=== PATIENT | female | born 1985 | race Caucasian/White ===

== ENCOUNTER 2023-12-18 20:21 | Emergency (ER) | payer SELFPAY ==
[2023-12-18] VITALS (7 sets, daily range): BP systolic 117–190; BP diastolic 68–100; PULSE 61–86; TEMP 36.8; O2SAT 18–99; BMI 28.3
--- NOTE | 2023-12-18 20:47 | CT_ITS ---
The [address] [address] Patient Name: JENNIFER BENAVIDEZ MRN: [id number] date: 1985 Sex: F Assigned Patient Location: ER Current Patient Location: ER Accession/Order Number: [id number] Exam Date: 12/18/2023 21:00 Report Date: 12/18/2023 22:05 At the request of: BRITTNEY RUIZ Procedure: CT head/brain wo con Head CT 12/18/2023 8:00 PM CDT History: dizziness. x Comparison: None Technique: Unenhanced CT imaging of the head. This CT exam was performed using one or more of the following dose reduction techniques: Automated exposure control, adjustment of the mA and/or KV according to patient size, or use of iterative reconstruction technique. Findings: There is no evidence of acute intracranial abnormality. Specifically, there is no evidence of acute hemorrhage, infarct, contusion, hydrocephalus, midline shift, or abnormal extra-axial collection. The calvarium is intact. The paranasal sinuses and mastoid air cells are clear. CT/CT head/brain wo con Impression: 1. No acute intracranial abnormality. Electronically authenticated by: ELINA DUNCAN Date: 12/18/2023 22:05
--- NOTE | 2023-12-18 20:48 | ED_ITS ---
HPI HPI - General Adult General Chief complaint: Headache Stated complaint: hypertension Time Seen by Provider: 12/18/23 20:25 Source: patient Mode of arrival: walk-in Limitations: no limitations History of Present Illness HPI narrative: presents complaining of headache, elevated blood pressure and sensation of off balance. No problem walking. No extremity weakness. No ear pain. No fever. History of same headaches for years. Does not have PCP. Works at [employer]. no visual complaints. sensation of feeling off balance is constant and does not vary with position Related Data Home Medications ?Medication ?Instructions ?Recorded ?Confirmed No Known Home Medications 12/18/23 12/18/23 Allergies Allergy/AdvReac Type Severity Reaction Status Date / Time No Known Drug Allergies Allergy Verified 12/18/23 20:35 Opioid HPI Opioid Management Most Recent Opioid Data: No Data to Display Review of Systems ROS Status of ROS 10 or more systems reviewed and unremark able except as noted in history and below Exam Constitutional Vital Signs, click to edit/add: Last Vital Signs Temp 98.2 F 12/18/23 20:32 Pulse 61 12/18/23 22:14 Resp 16 12/18/23 22:14 BP 125/90 12/18/23 22:14 Pulse Ox 96 12/18/23 22:14 O2 Del Method Room Air 12/18/23 22:14 Common normals: no apparent distress, average body habitus, oriented x3, no limitations, healthy appearing, alert and well nourished [facility] Common normals: normocephalic and head/scalp atraumatic Other: bilat bulging TM. not red Eye Common normals: PERRL and EOMs intact bilaterally Respiratory Common normals: normal respiratory effort, no retractions, no use of accessory muscles and clear to auscultation bilaterally Cardio Common normals: regular rate, regular rhythm, S1 normal heart sound and S2 normal heart sound Extremity Common normals: normal to inspection and full ROM Neuro Common normals: oriented x3, CN's II-XII intact bilaterally, moves all extremities and no focal motor deficits Psych Appearance: grossly normal Course Vital Signs Vital signs: Vital Signs Temperature 98.2 F 12/18/23 20:32 Pulse Rate 86 12/18/23 20:32 Respiratory Rate 20 12/18/23 20:32 Blood Pressure 190/100 H 12/18/23 20:32 Pulse Oximetry 18 L 12/18/23 20:32 Oxygen Delivery Method Room Air 12/18/23 20:32 Temperature 98.2 F 12/18/23 20:32 Pulse Rate 61 12/18/23 22:14 Respiratory Rate 16 12/18/23 22:14 Blood Pressure 125/90 12/18/23 22:14 Pulse Oximetry 96 12/18/23 22:14 Oxygen Delivery Method Room Air 12/18/23 22:14 Medical Decision Making MDM Narrative Medical decision making narrative: patient has past history of HTN but has not treated in over 6 years. Sensation of feeling off balance today and headache. Past history of similar headaches. No nausea or vision changes. BP 190 systolic on admision. Exam neg except bilat TMs fluid bulge. patient denies allergies. Treated with catapres 0.1 and solumedrol [address] brain neg. Patient feeling better after above intervention. BP is now 125/90. she was also given dose of lisinopril prior to discharge. Advised to follow up with PCP Lab Data Labs: Lab Results 12/18/23 Range/Units 20:55 WBC 7.8 (4.0-11.0) 10^3/uL RBC 4.67 (4.20-5.40) 10^6/uL Hgb 14.2 (12.0-16.0) g/dL Hct 40.8 (36.0-48.0) % MCV 87.4 (81.0-99.0) fL MCH 30.4 (26.7-34.0) pg MCHC 34.8 (29.9-35.2) g/dL RDW 12.1 (11.0-15.0) % Plt Count 307 (150-450) 10^3/uL MPV 9.4 L (9.5-13.5) fL Neut % (Auto) 56.8 (43.0-75.0) % Lymph % (Auto) 34.6 (20.5-60.0) % [place] % (Auto) 6.6 (1.7-12.0) % Eos % (Auto) 1.2 (0.9-7.0) % Baso % (Auto) 0.5 (0.2-2.0) % Neut # (Auto) 4.4 (1.4-6.5) 10^3/uL Lymph # (Auto) 2.7 (1.2-3.8) 10^3/uL [place] # (Auto) 0.5 (0.3-0.8) 10^3/uL Eos # (Auto) 0.1 (0.0-0.7) 10^3/uL Baso # (Auto) 0.0 (0.0-0.1) 10^3/uL Abs Immat Gran (auto) 0.02 (0.00-0.03) 10^3/uL Imm/Tot Granulo (auto) 0.3 (0.0-0.5) % Sodium 140 (136-145) mmol/L Potassium 3.3 L (3.5-5.1) mmol/L Chloride 104 (98-107) mmol/L Carbon Dioxide 25.6 (21.0-32.0) mmol/L Anion Gap 13.7 BUN 10.0 (7.0-18.0) mg/dL Creatinine 0.75 (0.55-1.02) mg/dL Est GFR ( Amer) >60 (>=60) Est GFR (Non-Af Amer) >60 (>=60) BUN/Creatinine Ratio 13.3 Glucose 88 (74-106) mg/dL Calcium 8.9 (8.5-10.1) mg/dL Discharge Plan Discharge Stand Alone Forms: Portal Instructions Chief Complaint: Headache Clinical Impression: Hypertensive urgency, Dizziness Patient Disposition: Home, Self-Care Prescriptions / Home Meds: No Action No Known Home Medications Print Language: Thai Instructions: Hypertensive Crisis (ED), Dizziness (ED) Additional Instructions: follow up with a family doctor next week. Referrals: Physician,Non-Staff, MD [Primary Care Provider] - 1 week
[2023-12-18 21:02] LABS: Basophils Percent Auto 0.5 % (0.2-2.0); Eosinophils Absolute Auto 0.1 10^3/uL (0.0-0.7); Eosinophils Percent Auto 1.2 % (0.9-7.0); Hematocrit 40.8 % (36.0-48.0); Hemoglobin 14.2 g/dL (12.0-16.0); Immature Granulocytes Abs Auto 0.02 10^3/uL (0.00-0.03); Immature Granulocytes Pct Auto 0.3 % (0.0-0.5); Lymphocytes Absolute Auto 2.7 10^3/uL (1.2-3.8); Lymphocytes Percent Auto 34.6 % (20.5-60.0); Mean Corpuscular HGB Conc 34.8 g/dL (29.9-35.2); Mean Corpuscular Hemoglobin 30.4 pg (26.7-34.0); Mean Corpuscular Volume 87.4 fL (81.0-99.0); Mean Platelet Volume 9.4 fL (9.5-13.5); Monocytes Absolute Auto 0.5 10^3/uL (0.3-0.8); Monocytes Percent Auto 6.6 % (1.7-12.0); Neutrophils Absolute Auto 4.4 10^3/uL (1.4-6.5); Neutrophils Percent Auto 56.8 % (43.0-75.0); Platelet Count 307 10^3/uL (150-450); Red Blood Count 4.67 10^6/uL (4.20-5.40); Red Cell Distribution Width 12.1 % (11.0-15.0); White Blood Count 7.8 10^3/uL (4.0-11.0)
[2023-12-18] MEDS: CLONIDINE HCL 0.1 MG TABLET PO (21:07)
[2023-12-18] MEDS: METHYLPREDNISOLONE SOD SUCC PF 125 MG/2 ML VIAL IVP (21:07)
[2023-12-18 21:14] LABS: Anion Gap 13.7; BUN Creatinine Ratio 13.3; Calcium 8.9 mg/dL (8.5-10.1); Carbon Dioxide 25.6 mmol/L (21.0-32.0); Chloride 104 mmol/L (98-107); Estimated GFR (African America >60 (>=60); Estimated GFR (Non-African Ame >60 (>=60); Glucose 88 mg/dL (74-106); Potassium 3.3 mmol/L (3.5-5.1); Sodium 140 mmol/L (136-145)
--- NOTE | 2023-12-18 22:52 | ECG_ITS ---
The [facility] Test Date: 2023-12-18 Pat Name: JENNIFER BENAVIDEZ Department: Room: - Gender: Female [employer]: : 1985 Requested By: [id number] Order Number: [id number] Reading MD: OLLIE ROE Measurements Intervals [place] Rate: 68 P: 49 AL: 128 QRS: 85 QRSD: 86 T: 45 QT: 394 QTc: 411 Interpretive Statements 1100 Sinus rhythm [address] depression 9130 borderline ECG No previous ECG available for comparison Electronically Signed On 12-19-2023 12:13:23 EDT by OLLIE ROE
[2023-12-18] MEDS: LISINOPRIL 10 MG TABLET PO (23:13)
== END 2023-12-18 23:14 | disposition home or self-care (01) ==
PROVIDERS: Emergency Provider Internal Medicine
DX: I16.0 Hypertensive urgency (principal); R42 Dizziness and giddiness
CPT/HCPCS: 36415; 70450; 80048; 85025; 93005; 96374; 99285; J2919

== ENCOUNTER 2024-07-13 19:22 | Emergency (ER) | payer SELFPAY ==
[2024-07-13 19:30] VITALS: BP 161/86; PULSE 65; TEMP 36.7; O2SAT 98
--- OUTSIDE RECORDS SUMMARY | 2024-07-13 19:31 | XMS_ITS | CCD ---
Author Organization [facility] Inform ion Partnership [facility] Care Team Providers Care Enrobing Machine Feeder Name Role Phone NONE, XXXX Primary Care Physician Unavailab RENETTA Gifford Primary Care Physician [phone] SUSANNA HOWE Attending Unavailable CARLEY, SUSANNA Admitting Unavailable SUSANNA HOWE Consulting Unavailable [facility] [place] Primary Care Unavailable ZACH, DR WHITTAKER Consulting Unavailable ZACH, DR WHITTAKER Attending Unavailable MISC, DR SANDHU Primary Care Unavailable ZACH, DR WHITTAKER Admitting Unavailable ZACH, DR WHITTAKER Consulting Unavailable ZACH, DR WHITTAKER Attending Unavailable MISC, DR SANDHU Primary Care Unavailable ZACH, DR WHITTAKER Admitting Unavailable ZIEBRUSTY, DR JEREMY Diego Consulting Unavailable Renetta Castle Primary Care Physician [phone] Unavailable Unavailable Unavailable Medications Current Medications Medication Drug Class(es) Dates Sig (Normalized) Sig (Original) brexpiprazole 1 mg oral tablet (1 source) Atypical Antipsychotic Start: 10-18-2021 take 1 tablet by mouth once daily Rexulti 1 mg oral tablet mg tab(s), Oral, Daily, Refills(s) 0 Start Date: 10/18/21 Status: Ordered cariprazine 1.5 mg oral capsule (2 sources) Atypical Antipsychotic Start: 05-14-2022 Vraylar 1.5 mg oral capsule Refills(s) 0 Start Date: 05/14/22 Status: Ordered cyclobenzaprine hydrochloride 10 mg oral tablet (5 sources) Muscle Relaxant Start: 11-30-2018 take 10 mg by mouth three times daily Cyclobenzaprine Active 10 MG Oral Three times daily November 30, 2018 1:30pm ibuprofen 600 mg oral tablet (5 sources) Nonsteroidal Anti-inflammatory Drug Start: 11-30-2018 take 600 mg by mouth every six hours Ibuprofen Active 600 MG Oral Q6H November 30, 2018 1:30pm lamoTRIgine 200 mg disintegrating oral tablet (2 sources) Mood Stabilizer, Anti-epileptic Agent Start: 10-18-2021 take 1 mg by mouth twice daily lamotrigine 200 mg oral tablet, disintegrating mg tab(s), Oral, BID, Refills(s) 0 Start Date: 10/18/21 Status: Ordered lamotrigine 200 mg oral tablet, disintegrating (1 source) Start: 10-18-2021 take 1 mg by mouth twice daily lamotrigine 200 mg oral tablet, disintegrating mg tab(s), Oral, BID, Refills(s) 0 Start Date: 10/18/21 Status: Ordered phenazopyridine hydrochloride 100 mg oral tablet (1 source) Start: 10-18-2021 phenazopyridine 100 mg Tab mg tab(s), Oral, TIDPC, Refills(s) 0 Start Date: 10/18/21 Status: Ordered QUEtiapine 50 mg oral tablet (1 source) Atypical Antipsychotic Start: 10-18-2021 take 1 mg by mouth twice daily SEROquel 50 mg Tab mg tab(s), Oral, BID, Refills(s) 0 Start Date: 10/18/21 Status: Ordered 24 hr venlafaxine 150 mg extended release oral capsule (5 sources) Serotonin and Norepinephrine Reuptake Inhibitor Start: 11-30-2018 take 150 mg by mouth once daily Venlafaxine Active 150 MG Oral Daily November 30, 2018 11:51am ziprasidone 40 mg oral capsule (1 source) Atypical Antipsychotic Start: 10-18-2021 take 1 mg by mouth twice daily Geodon 40 mg oral capsule mg cap(s), Oral, BID, Refills(s) 0 Start Date: 10/18/21 Status: Ordered Completed/Discontinued Medications Medication Drug Class(es) Dates Sig (Normalized) Sig (Original) potassium citrate 15 meq extended release oral tablet (2 sources) Start: 05-14-2022 take 1 tablet by mouth twice daily Urocit-K 15 mEq oral tablet, extended release 15 mEq = 1 tab(s), Oral, BID, # 60 tab(s), Refills(s) 11, Pharmacy: [facility]/pharmacy #[id number], 162, cm, 05/14/22 13:29:00 EST, Height/Length Dosing, 72, kg, 05/14/22 13:29:00 EST, Weight Dosing Start Date: 05/14/22 Status: Ordered Problems Problem Classification Problem Date Documented Da te Episodic/Chronic Anxiety disorders (3 sources) Anxiety 10-17-2021 Chronic Calculus of urinary tract (11 sources) Kidney stone; Translations: [Calculus of kidney] Onset: 10-18-2021 Episodic Disorders of teeth and jaw (4 sources) Other specified disorders of teeth and supporting structures; Translations: [Dental caries, unspecified] Onset: 01-30-2022 Episodic Mood disorders (3 sources) Bipolar disorder 10-17-2021 Chronic Other aftercare (1 source) Other correction (current) drug therapy; Translations: [OTH BIT TRIPOLER CURRENT DRUG THERAPY] Onset: 02-03-2022 Episodic Spondylosis; intervertebral disc disorders; other back problems (5 sources) Neck pain; Translations: [Pain of cervical spine] Episodic Urinary tract infections (3 sources) Urinary tract infectious disease; Translations: [Urinary tract infection, site not specified] Onset: 05-14-2022 Episodic Results Test Name Value Interpretation Reference Range Facility Patient [place] [facility] [place] [facility] [place] 21, 2023 JENNIFER BENAVIDEZ [facility] [place] [address] : 1985 Dear Jennifer Benavidez, [facility] has been trying to reach you concerning your 9 mm kidney stone seen on KUB x-ray. The phone number we have on file has been disconnected. Please call the office to update your information. The office has been trying to set up surgical intervention with you once your insurance became active. Kidney stones can continue to grow, and/or leave the kidney causing obstruction. Please call the office to schedule an appointment with KUB x-ray to discuss intervention, or call to schedule surgical intervention. Thank you for your cooperation in this matter, so we can continue to provide you with quality care. Sincerely, [facility] at [facility] option #3 Normal [facility] CITRATE URINE 24HRon 022 Citric Acid, U, 24hr 217 mg/24 hr Critically low 320-1240 [facility] Comment on above: Result Comment: This test was developed and its performance characteristics determined by [facility]. It has not been cleared or approved by the Food and Drug Administration. Performed By: #### C ITRATU #### [facility] [address] [place], [place] [address] Dr. Ciara Rhoades Citric Acid, Urine 321 mg/L Normal Undefined [facility] Comment on above: Performed By: #### C ITRATU #### [facility] [address] [place], [place] [address] Dr. Ciara Rhoades OXALATE 24HR URINEon 022 Oxalates, Urine 17 mg/L Normal Undefined [facility] Comment on above: Performed By: #### O X24HR ####[facility] [address] [place] [id number]. Ciara Rhoades Oxalates, Urine 24hr 11 mg/24 hr Normal 4-31 [facility] Comment on above: Performed By: #### O X24HR ####[facility] [address] [place] [id number]. Ciara Rhoades MAGNESIUM 24HR URINEon 10-29 Magnesium 24hr Urine 30.4 mg/24 hr Normal 12.0-293.0 [facility] Comment on above: Performed By: #### M AG24 ####[facility] [address] [place] [id number]. Ciara Rhoades Magnesium UR 4.5 mg/dL Normal Not Estab. [facility] Comment on above: Performed By: #### M AG24 ####[facility] [address] [place] [id number]. Ciara Rhoades PHOSPHORUS 24HR URINEon 10-10 Phosphorus, Urine 72.5 mg/dL Normal Not Estab. The [facility] Comment on above: Performed By: #### P HOS 24 ####[facility] [address] [place] [id number]. Ciara Rhoades Phosphorus, Urine 24hr 489 mg/24 hr Normal 261-1078 [facility] Comment on above: Performed By: #### P HOS 24 ####[facility] [address] [place] [id number]. Ciara Rhoades PTH INTACTon 10-29-2021 PTH, Intact 22 pg/mL Normal 15-65 [facility] Comment on above: Performed By: #### P THINT ####[facility] [address] [place] [address]Dr. Ciara Rhoades URIC ACID 24 HR URINEon 10-10 Uric Acid, Urine 67.4 mg/dL Normal Not Estab. The [facility] Comment on above: Performed By: #### U MARIO 24 ####[facility] [address] [place] [address]Dr. Ciara Jf Uric Acid, Urine 24hr 455.0 mg/24 hr Normal 173.7-902. 1 [facility] Comment on above: Performed By: #### U MARIO 24 ####[facility] [address] [place] [address]Dr. Ciara Rhoades BUNon 10-28-2021 Urea nitrogen [Mass/Vol] 13.0 mg/dL Normal 7.0-18.0 [facility] Comment on above: Performed By: #### C A, BUN, URIC, CO2, K, CREA, NA, CL #### [facility] [address] [place] [address] [address] Ciara Rhoades CALCIUMon 10-28-2021 Calcium [Mass/Vol] 8.3 mg/dL Critically low 8.5-10.1 [facility] Comment on above: Performed By: #### C A, BUN, URIC, CO2, K, CREA, NA, CL ####[facility] [address] [place] [address]Dr. Ciara Rhoades CALCIUM 24 HR URINEon 2021 CALC, 24 HR UR 9.3 mg/24 hr Critically low 100.0-300.0 [facility] Comment on above: Performed By: #### C [id number] #### [facility] [address] [place] [address] [address] Ciara Rhoades UR CALCIUM 11.8 mg/dL Normal 5.1-21.0 [facility] Comment on above: Performed By: #### C ALC24U #### [facility] [address] [place] [address] [address] Ciara Rhoades UR TOT VOL 79 ml/24 HR Normal [facility] Comment on above: Performed By: #### C ALC24U #### [facility] [address] [place] [address] [address] Ciara Rhoades CHLORIDEon 10-28-2021 Chloride [Moles/Vol] 104 mmol/L Normal 98-107 [facility] Comment on above: Performed By: #### C A, BUN, URIC, CO2, K, CREA, NA, CL ####[facility] [address] [place] [address]Dr. Ciara Rhoades CO2on 10-28-2021 CO2 [Moles/Vol] 25.9 mmol/L Normal 21.0-32.0 [facility] Comment on above: Performed By: #### C A, BUN, URIC, CO2, K, CREA, NA, CL #### [facility] [address] [place] [address] [address] Ciara Rhoades CREA 24 HR URINEon 2 CREA, 24 HR UR 900.65 mg/24 hr Normal 800.00-1,8 00. 00 [facility] Comment on above: Performed By: #### C REA24U, NA24U #### [facility] [address] [place] [address] [address] Ciara Rhoades UR TOT VOL 675 ml/24 HR Normal [facility] Comment on above: Performed By: #### C REA24U, NA24U #### [facility] [address] [place] [address] Dr. Ciara Rhoades URINE CREAT 133.43 mg/dL Normal 20.00-300.00 [facility] Comment on above: Performed By: #### C REA24U, NA24U #### [facility] [address] [place] [address] [address] Ciara Rhoades CREATININEon 10-28-2021 Creatinine [Mass/Vol] 0.87 mg/dL Normal 0.55-1.02 [facility] Comment on above: Performed By: #### C A, BUN, URIC, CO2, K, CREA, NA, CL #### [facility] [address] [place] [address] [address] Ciara Rhoades EGFR-AF CAMEROONIAN >60 Normal >=60 [facility] Comment on above: Performed By: #### C A, BUN, URIC, CO2, K, CREA, NA, CL #### [facility] [address] [place] [address] [address] Ciara Rhoades EGFR-NON AF CAMEROONIAN >60 Normal >=60 [facility] Comment on above: Performed By: #### C A, BUN, URIC, CO2, K, CREA, NA, CL #### [facility] [address] [place] [address] [address] Ciara Rhoades NAon 10-28-2021 Sodium [Moles/Vol] 138 mmol/L Normal 136-145 [facility] Comment on above: Performed By: #### C A, BUN, URIC, CO2, K, CREA, NA, CL #### [facility] [address] [place] [address] [address] Ciara Rhoades POTASSIUMon 10-28-2021 Potassium [Moles/Vol] 3.9 mmol/L Normal 3.5-5.1 [facility] Comment on above: Performed By: #### C A, BUN, URIC, CO2, K, CREA, NA, CL ####[facility] [address] [place] [address]Dr. Ciara Rhoades SODIUM 24 HR URINEon 022 NA, 24 HR UR 111 mmol/24 hr Normal 40-220 [facility] Comment on above: Performed By: #### C REA24U, NA24U #### [facility] [address] [place] [address] [address] Ciara Rhoades Sodium (U) [Moles/Vol] 165 mmol/L Critically high 30-90 [facility] Comment on above: Performed By: #### C REA24U, NA24U #### [facility] [address] [place] [address] [address] Ciara Rhoades URIC ACID SERUMon 10-28-2021 Urate [Mass/Vol] 5.4 mg/dL Normal 2.6-6.0 [facility] Comment on above: Performed By: #### C A, BUN, URIC, CO2, K, CREA, NA, CL #### [facility] [address] [place] [address] [address] Ciara Rhoades XR KUB 1 VIEWon 10-21-2021 XR KUB 1 VIEW EXAMINATION: XR KUB 1 VIEW HISTORY: Kidney stone COMPARISON: No relevant comparison available. FINDINGS: KIDNEY/URETER - RIGHT: No visible renal or ureteral calcifications. KIDNEY/URETER - LEFT: No visible renal or ureteral calcifications. PELVIS: Numerous pelvic calcifications; nonspecific but favoring phleboliths. BOWEL: No abnormal dilation or deviation. BONES: No acute abnormality. OTHER: Negative. No abnormal gaseous collections. IMPRESSION: 1. No convincing urinary tract calculi. A distal ureteral stone cannot be excluded. Electronically authenticated by: JEREMY BLACK Date: 2021-10-21 17:10 Normal [facility] CHEMISTRYOrdered By: SYSTEM SYSTEM on 09-12-2021 Albumin [Mass/Vol] 4.4 g/dL Normal 3.3 - 5.0 gm/dL [facility] Albumin/Globulin [Mass ratio] 1.5 {ratio} Normal 1.1 - 2.2 [facility] ALP [Catalytic activity/Vol] 57 [iU]/d Normal 21 - 98 Int._Unit/L [facility] ALT No additional P-5'-P [Catalytic activity/Vol] 39 [iU]/d Normal 6 - 46 Int._Unit/L [facility] Anion gap [Moles/Vol] 14 mmol/L Normal 6 - 16 mEq/L [facility] AST [Catalytic activity/Vol] 26 [iU]/d Normal 5 - 43 Int._Unit/L [facility] Bilirubin [Mass/Vol] 1.2 mg/dL High 0.0 - 1 .1 mg/dL [facility] Calcium [Mass/Vol] 9.3 mg/dL Normal 8.9 - 11. 1 mg/dL [facility] Chloride [Moles/Vol] 104 mmol/L Normal 101 - 1 11 mmol/L [facility] Cholesterol [Mass/Vol] 192 mg/dL Normal 120 - 200 mg/dL [facility] Cholesterol in HDL [Mass/Vol] 37 mg/dL Invalid Interpretation Code [facility] Cholesterol in LDL [Mass/Vol] 137 mg/dL High <=129mg/dL [facility] Cholesterol in VLDL [Mass/Vol] 17 mg/dL Normal 7 - 40 mg/dL [facility] CO2 [Moles/Vol] 23 mmol/L Normal 21 - 31 mmol/L [facility] Creatinine [Mass/Vol] 0.8 mg/dL Normal 0.5 - 1.3 mg/dL [facility] GFR/1.73 sq M.predicted among blacks MDRD (S/P/Bld) [Vol rate/Area] mL/min/1.73 m2 Normal >=59mL/min/1. 73 m2 [facility] Chem S GFR/1.73 sq M.predicted among non-blacks MDRD (S/P/Bld) [Vol rate/Area] mL/min/1.73 m2 Normal >=59mL/min/1. 73 m2 [facility] Chem S Globulin (S) [Mass/Vol] 2.9 g/dL Normal 1.4 - 4.0 gm/dL [facility] Glucose [Mass/Vol] 98 mg/dL Normal 55 - 199 mg/dL [facility] Potassium [Moles/Vol] 3.9 mmol/L Normal 3.5 - 5.3 mmol/L [facility] Protein [Mass/Vol] 7.3 g/dL Normal 6.0 - 7.8 gm/dL [facility] Sodium [Moles/Vol] 137 mmol/L Normal 135 - 145 mmol/L [facility] Triglyceride [Mass/Vol] 85 mg/dL Normal <=149mg/dL [facility] TSH Qn 1.09 m[IU]/L Normal 0.34 - 5.60 mcIU/mL [facility] Urea nitrogen [Mass/Vol] 15 mg/dL Normal 5 - 21 mg/dL [facility] Urea nitrogen/Creatinine [Mass ratio] 19 mg/mg Normal 10 - 20 [facility] HEMATOLOGYOrdered By: SYSTEM SYSTEM on 09-12-2021 Basophils/100 WBC (Bld) 0.4 % Normal 0.0 - 2.0 % [facility]eAutoSS Basophils/Leukocytes Auto (Bld) [Pure # fraction] 0.0 E9/L Normal 0.0 - 0.2 E9/L [facility] Eosinophils/100 WBC (Bld) 1.2 % Normal 0.0 - 8.0 % [facility] Eosinophils/Leukocyte s Auto (Bld) [Pure # fraction] 0.1 E9/L Normal 0.0 - 0.5 E9/L [facility] Lymphocytes/100 WBC (Bld) 26.6 % Normal 14.0 - 50.0 % [facility]eAuto[facility] Lymphocytes/Leukocyte s Auto (Bld) [Pure # fraction] 1.5 E9/L Normal 1.0 - 4.0 E9/L [facility] Monocytes/100 WBC (Bld) 6.1 % Normal 4.0 - 14.0 % [facility]eAutoSS Monocytes/Leukocytes Auto (Bld) [Pure # fraction] 0.3 E9/L Normal 0.2 - 1.0 E9/L [facility] Neutrophils/100 WBC (Bld) 65.7 % Normal 36.0 - 75.0 % [facility]Auto[facility] Neutrophils/Leukocyte s Auto (Bld) [Pure # fraction] 3.6 E9/L Normal 2.0 - 7.5 E9/L [facility] HEMATOLOGYOrdered By: Vita Rosenbaum on 09-12-2021 Erythrocyte distribution width (RBC) [Ratio] 13.1 % Normal 10.9 - 14.2 % [facility] Hematocrit (Bld) [Volume fraction] 41.0 % Normal 34.0 - 46.0 % [facility] Hemoglobin (Bld) [Mass/Vol] 14.1 g/dL Normal 12.0 - 16.0 gm/dL [facility] MCH (RBC) [Entitic mass] 30.7 pg Normal 27.0 - 34.0 pg [facility] MCHC (RBC) [Mass/Vol] 34.4 g/dL Normal 31.4 - 36.0 gm/dL [facility] MCV (RBC) [Entitic vol] 89.2 fL Normal 80.0 - 100.0 fL [facility] Platelet mean volume (Bld) [Entitic vol] 8.4 fL Normal 6.4 - 10.8 fL [facility] Platelets (Bld) [#/Vol] 283.0 E9/L Normal 150.0 - 500.0 E9/L [facility] RBC (Bld) [#/Vol] 4.6 E12/L Normal 4.3 - 5.9 E12/L [facility] WBC corrected for nucl RBC Auto (Bld) [#/Vol] 5.5 E9/L Normal 4.0 - 11.0 E9/L [facility] Comment on above: Result Comment: Tan e reviewed by ts. Vital Signs Date Time Vital Sign Value Performing Clinician Everette correa 05-14-2022 13:14-0500 Blood Pressure Location HARI CARROLL [facility] 05-14-2022 13:14-0500 Diastolic blood pressure 84 mm[Hg] HARI CARROLL [facility] 05-14-2022 13:14-0500 Heart rate 70 /min HARI CARROLL [facility] 05-14-2022 13:14-0500 Respiratory rate 16 /min HARI CARROLL [facility] 05-14-2022 13:14-0500 Systolic blood pressure 120 mm[Hg] HARI CARROLL [facility] 10-18-2021 10:07-0400 Blood Pressure Location Fracisco SERRANO [facility] 10-18-2021 10:07-0400 Diastolic blood pressure 79 mm[Hg] Fracisco SERRANO [facility] 10-18-2021 10:07-0400 Heart rate 82 /min [facility]ac[facility] SERRANO [facility] 10-18-2021 10:07-0400 Respiratory rate 16 /min [facility] 10-18-2021 10:07-0400 Systolic blood pressure 117 mm[Hg] Fracisco SERRANO [facility] En[facility] Encounter Date Encounter Type Care Provider Facility Start: 05-14-2022 End: 05-14-2022 Lab Drop off HARI CARROLL [facility] Start: 05-14-2022 End: 05-14-2022 Patient encounter procedure HARI CARROLL [facility] Start: 01-30-2022 End: 01-30-2022 ambulatory SUSANNA HOWE Facility:[facility] Start: 10-28-2021 End: 10-29-[address] FRACISCO SERRANO Facility:[facility] Start: 10-21-2021 End: 10-22-[address] FRACISCO SERRANO Facility:[facility] Start: 10-18-2021 End: 10-18-2021 Patient encounter procedure Fracisco SERRANO [facility] Start: 09-21-2021 End: 09-21-2021 Patient encounter procedure RENETTA CASTLE [facility] Start: 09-12-2021 End: 09-12-2021 Patient encounter procedure RENETTA CASTLE [facility] Start: 09-12-2021 End: 09-12-2021 Lab Drop off RENETTA CASTLE [facility] Start: 08-29-2021 End: 08-29-2021 Lab Drop off RENETTA CASTLE [facility] Procedures Date Procedure Procedure Detail Performing Clinician Bilateral tubal ligation Marquita SERRANO Partial hysterectomy Fracisco SERRANO Payers Date Payer Category Payer Unknown [id number] 2.16.84 [id number] 1985 Unknown [id number] 2.16.84 [id number] 1984 Unknown [id number] 1960 Unknown [id number] 1960 Unknown [id number] Self-pay Self Pay [id number] Social History Date Type Detail Facility [facility] Start: 1985 Sex Assigned At Female F [facility] Sex Assigned At Female [facility] Tobacco smoking status No Smokin g Status Entered [facility] Goals Date Patient Goal Desired Activity /State Functional Status Date Assessment Result Facility 05-14-2022 Functional Status N/A [facility] Discharge instructions 05-14-2022 Note Date & Type Note Facility 05-14-2022 Hospital Discharg e instructions Patient Education 05/14/2022 14:06:43 Urinary Tract Infection, Adult, [id number] Urinary Tract Infection, Adult A urinary tract infection (UTI) is an infection of any part of the urinary tract. The urinary tract includes: The kidneys. The ureters. The bladder. The urethra. These organs make, store, and get rid of pee (urine) in the body. What are the causes? This is caused by germs (bacteria) in your genital area. These germs grow and cause swelling (inflammation) of your urinary tract. What increases the risk? You are more likely to develop this condition if: You have a small, thin tube (catheter) to drain pee. You cannot control when you pee or poop (incontinence). You are female, and: ?You use these methods to prevent : ?A medicine that kills sperm (spermicide). ?A device that blocks sperm (diaphragm). ?You have low levels of a female hormone (estrogen). ?You are . You have genes that add to your risk. You are sexually active. You take antibiotic medicines. You have trouble peeing because of: ?A prostate that is bigger than normal, if you are male. ?A blockage in the part of your body that drains pee from the bladder (urethra). ?A kidney stone. ?A nerve condition that affects your bladder (neurogenic bladder). ?Not getting enough to drink. ?Not peeing often enough. You have other conditions, such as: ?Diabetes. ?A weak disease-fighting system (immune system). ?Sickle cell disease. ?Gout. ?Injury of the spine. What are the signs or symptoms? Symptoms of this condition include: Needing to pee right away (urgently). Peeing often. Peeing small amounts often. Pain or burning when peeing. Blood in the pee. Pee that smells bad or not like normal. Trouble peeing. Pee that is cloudy. Fluid coming from the vagina, if you are female. Pain in the belly or lower back. Other symptoms include: Throwing up (vomiting). No urge to eat. Feeling mixed up (confused). Being tired and grouchy (irritable). A fever. Watery poop (diarrhea). How is this treated? This condition may be treated with: Antibiotic medicine. Other medicines. Drinking enough water. Follow these instructions at home: Medicines Take qpun-xnk-hwnwkbm and prescription medicines only as told by your doctor. If you were prescribed an antibiotic medicine, take it as told by your doctor. Do not stop taking it even if you start to feel better. General instructions Make sure you: ?Pee until your bladder is empty. ?Do not hold pee for a long time. ?Empty your bladder after sex. ?Wipe from front to back after pooping if you are a female. Use each tissue one time when you wipe. Drink enough fluid to keep your pee pale yellow. Keep all follow-up visits as told by your doctor. This is important. Contact a doctor if: You do not get better after 1 2 days. Your symptoms go away and then come back. Get help right away if: You have very bad back pain. You have very bad pain in your lower belly. You have a fever. You are sick to your stomach (nauseous). You are throwing up. Summary A urinary tract infection (UTI) is an infection of any part of the urinary tract. This condition is caused by germs in your genital area. There are many risk factors for a UTI. These include having a small, thin tube to drain pee and not being able to control when you pee or poop. Treatment includes antibiotic medicines for germs. Drink enough fluid to keep your pee pale yellow. This information is not intended to replace advice given to you by your health care provider. Make sure you discuss any questions you have with your health care provider. Document Released: 10/13/2008 Document Revised: 04/14/2019 Document Reviewed: 11/04/2018 [employer] Patient Education 2020 [employer]. Follow Up Care 10/23/2021 09:07:21 With:ZACH SALDAÑA, Fracisco Diego, URL Address: [address] [place] [phone] When: Unknown [facility] Evaluation + Plan note 05-14-2022 Note Date & Type Note Facility 05-14-2022 Evaluation + Plan note Diagnostic Tests PendingUrine Culture 05/14/22 [facility] Hospital Discharge instructions 10-18-2021 Note Date & Type Note Facility 10-18-2021 Hospital Discharg e instructions Patient Education 10/18/2021 10:33:49 Kidney Stones, Tlem-cl-Pumk Kidney Stones Kidney stones are rock-like masses that form inside of the kidneys. Kidneys are organs that make pee (urine). A kidney stone may move into other parts of the urinary tract, including: The tubes that connect the kidneys to the bladder (ureters). The bladder. The tube that carries urine out of the body (urethra). Kidney stones can cause very bad pain and can block the flow of pee. The stone usually leaves your body (passes) through your pee. You may need to have a doctor take out the stone. What are the causes? Kidney stones may be caused by: A condition in which certain glands make too much parathyroid hormone (primary hyperparathyroidism). A buildup of a type of crystals in the bladder made of a chemical called uric acid. The body makes uric acid when you eat certain foods. Narrowing (stricture) of one or both of the ureters. A kidney blockage that you were born with. Past surgery on the kidney or the ureters, such as gastric bypass surgery. What increases the risk? You are more likely to develop this condition if: You have had a kidney stone in the past. You have a family history of kidney stones. You do not drink enough water. You eat a diet that is high in protein, salt (sodium), or sugar. You are overweight or very overweight (obese). What are the signs or symptoms? Symptoms of a kidney stone may include: Pain in the side of the belly, right below the ribs (flank pain). Pain usually spreads (radiates) to the groin. Needing to pee often or right away (urgently). Pain when going pee (urinating). Blood in your pee (hematuria). Feeling like you may vomit (nauseous). Vomiting. Fever and chills. How is this treated? Treatment depends on the size, location, and makeup of the kidney stones. The stones will often pass out of the body through peeing. You may need to: Drink more fluid to help pass the stone. In some cases, you may be given fluids through an IV tube put into one of your veins at the hospital. Take medicine for pain. Make changes in your diet to help keep kidney stones from coming back. Sometimes, medical procedures are needed to remove a kidney stone. This may involve: A procedure to break up kidney stones using a beam of light (laser) or shock waves. Surgery to remove the kidney stones. Follow these instructions at home: Medicines Take eppb-eyn-jqnjvmn and prescription medicines only as told by your doctor. Ask your doctor if the medicine prescribed to you requires you to avoid driving or using heavy machinery. Eating and drinking Drink enough fluid to keep your pee pale yellow. You may be told to drink at least 8 10 glasses of water each day. This will help you pass the stone. If told by your doctor, change your diet. This may include: ?Limiting how much salt you eat. ?Eating more fruits and vegetables. ?Limiting how much meat, poultry, fish, and eggs you eat. Follow instructions from your doctor about eating or drinking restrictions. General instructions Collect pee samples as told by your doctor. You may need to collect a pee sample: ?24 hours after a stone comes out. ?8 12 weeks after a stone comes out, and every 6 12 months after that. Strain your pee every time you pee (urinate), for as long as told. Use the strainer that your doctor recommends. Do not throw out the stone. Keep it so that it can be tested by your doctor. Keep all follow-up visits as told by your doctor. This is important. You may need follow-up tests. How is this prevented? To prevent another kidney stone: Drink enough fluid to keep your pee pale yellow. This is the best way to prevent kidney stones. Eat healthy foods. Avoid certain foods as told by your doctor. You may be told to eat less protein. Stay at a healthy weight. Where to find more information National Kidney Foundation (NKF): www.kidney.org [employer] (UCF): www.urologyhealth.org Contact a doctor if: You have pain that gets worse or does not get better with medicine. Get help right away if: You have a fever or chills. You get very bad pain. You get new pain in your belly (abdomen). You pass out (faint). You cannot pee. Summary Kidney stones are rock-like masses that form inside of the kidneys. Kidney stones can cause very bad pain and can block the flow of pee. The stones will often pass out of the body through peeing. Drink enough fluid to keep your pee pale yellow. This information is not intended to replace advice given to you by your health care provider. Make sure you discuss any questions you have with your health care provider. Document Released: 10/13/2008 Document Revised: 09/13/2019 Document Reviewed: 09/13/2019 [employer] Patient Education 2019 [employer]. Follow Up Care 09/27/2021 12:34:15 With:ZACH SALDAÑA, Fracisco Diego, SAKINAL Address: [facility] [address], [place] [address]- [phone] When: Unknown [facility] Evaluation + Plan note 08-29-2021 Note Date & Type Note Facility 08-29-2021 Evaluation + Plan note Diagnostic Tests PendingUrine Culture 08/29/21 [facility] Hospital course Narrative Note Date & Type Note Facility Hospital course Narrative No data available for this section [facility] Hospital Discharge instructions Note Date & Type Note Facility Hospital Discharge instructions No data available for this section [facility] Progress note Note Date & Type Note Facility Progress note No data available for this section [facility] Assessments No Assessments Information Available Summary Purpose Family History No Family History Records FoundNo Family History Records Found Advance Directives No Advanced Directives Records FoundNo Advanced Directives Records Found Additional Source Comments INFORMATION SOURCE (unrecogn ized section and content) DATE CREATED AUTHOR 04/19/2022 [facility] DATE CREATED AUTHOR AUTHOR'S ORGANIZ ATION 05/20/2023 [facility] Patient Care team informatio n (unrecognized section and content) Personnel Name: Corrine SLOAN Renetta Maria Address: Address: [address] [place] [address] Personnel Name: Corrine SLOAN Renetta Maria Address: Address: [address] [place] [address] FOR RECORDS PERTAINING TO PATIENTS WHO ARE OR HAVE BEEN ENROLLED IN A CHEMICAL DEPENDENCY/SUBSTANCEABUSE PROGRAM, SOME INFORMATION MAY BE OMITTED. This clinical summary was aggregated from multiple sources. Caution should be exercised in using it in the provision of clinical care. This summary normalizes information from multiple sources, and as a consequence, information in this document may materially change the coding, format and clinical context of patient data. In addition, data may be omitted in some cases. CLINICAL DECISIONS SHOULD BE BASED ON THE PRIMARY CLINICAL RECORDS. [facility]. provides no warranty or guarantee of the accuracy or completeness of information in this document.
--- NOTE | 2024-07-13 19:34 | ED.EAR1 ---
HPI - Ear Problem General Chief complaint: Ear Stated complaint: EAR PAIN Time Seen by Provider: 07/13/24 19:28 Source: patient Mode of arrival: walk-in Limitations: no limitations History of Present Illness HPI Narrative: 38 year old female presents to the ED for left ear pain. Onset was 2-3 days ago. She has been having mild discomfort to the ear with itching for several months. Denies injury, drainage from the ear. Denies sinus congestion/drainage, sore throat. Related Data Previous Rx's ?Medication ?Instructions ?Recorded amoxicillin 500 mg capsule 500 mg PO BID 10 days #20 caps 07/13/24 cetirizine 10 mg capsule (Zyrtec) 10 mg PO DAILY #14 caps 07/13/24 naproxen 500 mg tablet (Naprosyn) 500 mg PO Q12H PRN pain #10 tabs 07/13/24 Allergies Allergy/AdvReac Type Severity Reaction Status Date / Time No Known Drug Allergies Allergy Verified 07/13/24 19:30 Review of Systems ROS Constitutional Denies: fever or chills Ears, nose, mouth, and throat Reports: ear pain; Denies: throat pain, neck pain, ear discharge, nasal discharge or nasal congestion Cardiovascular Denies: chest pain Respiratory Denies: shortness of breath or cough Neurological Denies: headache, weakness in extremities or dizziness PFSH PFSH Social History Little interest or pleasure in doing things: not at all Feeling down, depressed, or hopeless: not at all Exam Constitutional Vital Signs, click to edit/add: Last Vital Signs Temp 98.0 F 07/13/24 19:30 Pulse 65 07/13/24 19:30 Resp 18 07/13/24 19:30 BP 161/86 H 07/13/24 19:30 Pulse Ox 98 07/13/24 19:30 O2 Del Method Room Air 07/13/24 19:30 Common normals: no apparent distress and oriented x3 General appearance: cooperative HENMT Face and sinus: normal facial exam Nose: external nose normal External ear: external ears normal External auditory canal: EACs normal Tympanic membrane: TM abnormal TM laterality: left erythematous Throat: posterior oropharynx normal Eye Common normals: conjunctivae normal and no scleral icterus Neck & C-Spine Common normals: supple Respiratory Common normals: normal respiratory effort Effort & inspection: able to speak in complete sentences and symmetric chest movement Cardio Common normals: regular rate Neuro Common normals: oriented x3 Sensorium/orientation: awake and alert Speech: speech normal Course Vital Signs Vital signs: Vital Signs Temperature 98.0 F 07/13/24 19:30 Pulse Rate 65 07/13/24 19:30 Respiratory Rate 18 07/13/24 19:30 Blood Pressure 161/86 H 07/13/24 19:30 Pulse Oximetry 98 07/13/24 19:30 Oxygen Delivery Method Room Air 07/13/24 19:30 Temperature 98.0 F 07/13/24 19:30 Pulse Rate 65 07/13/24 19:30 Respiratory Rate 18 07/13/24 19:30 Blood Pressure 161/86 H 07/13/24 19:30 Pulse Oximetry 98 07/13/24 19:30 Oxygen Delivery Method Room Air 07/13/24 19:30 Medical Decision Making MDM Narrative Medical decision making narrative: Left TM was erythematous. Prescriptions were provided for amoxicillin, Zyrtec, and naprosyn. Follow up with pcp for a recheck, further evaluation and treatment. ENT follow up was also discussed. Medical Records Medical records reviewed: Yes I reviewed the patient's medical records Discharge Plan Discharge Chief Complaint: Ear Clinical Impression: Otitis media Patient Disposition: Home, Self-Care Time of Disposition Decision: 19:35 Condition: Good Mode of Transportation: Private Vehicle Prescriptions / Home Meds: New amoxicillin 500 mg capsule 500 mg PO BID 10 Days Qty: 20 0RF naproxen [Naprosyn] 500 mg tablet 500 mg PO Q12H PRN (Reason: pain) Qty: 10 0RF Zyrtec 10 mg capsule 10 mg PO DAILY Qty: 14 0RF Print Language: Hungarian Instructions: Ear Infection (ED) Additional Instructions: Return to the ER for worsening symptoms. Referrals: Physician,Non-Staff, MD [Primary Care Provider] - 1 week
[2024-07-13] MEDS: NAPROXEN 250 MG TABLET 500 MG PO (20:06)
--- NOTE | 2024-07-13 20:14 | PC.NURSE ---
i gave this patient verbal and written discharge orders along with 3 e-scripts and she voices yes to understanding these. at time of discharge this patient voices no concerns and shows no sign of distress
== END 2024-07-13 20:16 | disposition home or self-care (01) ==
PROVIDERS: Emergency Provider Emergency Medicine
DX: H66.92 Otitis media, unspecified, left ear (principal)
CPT/HCPCS: 99283